=== PATIENT | male | born 1955 | race Caucasian/White ===

== ENCOUNTER 2018-05-01 16:19 | Outpatient (REF) | payer MEDICAID, SELFPAY ==
[2018-05-01 22:15] LABS: Abs Immature Grans 0.03 k/cumm (0.0-0.09); Absolute Basophil Count 0.03 k/cumm (0.0-0.2); Absolute Eosinophil Count 0.16 k/cumm (0.0-0.7); Absolute Lymphocyte Count 1.68 k/cumm (1.2-3.4); Absolute Monocyte Count 0.82 k/cumm (0.11-0.7); Absolute Neutrophil Count 5.08 k/cumm (1.2-6.7); Basophils % 0.4; Eosinophils % 2.1; HCT 43.9 % (40.0-50.0); Immature Grans % 0.4; Lymphocytes % 21.5; Mean Corp. HGB Concentration 34.2 g/dL (32.0-36.0); Mean Corpuscular Hemoglobin 31.9 pg (27.0-33.0); Mean Corpuscular Volume 93.4 fL (80-95); Mean Platelet Volume 10.3 fL (8.0-11.0); Monocytes % 10.5; Neutrophils % 65.1; Platelet Count 279 x1000/uL (130-400); RBC Distribution Width 12.8 % (11.8-14.1)
[2018-05-01 22:57] LABS: ALT 18 U/L (12-78); AST 10 U/L (15-37); Alkaline Phosphatase 69 U/L (46-116); Anion Gap 8.8 mmol/L (3-11); BUN 19 mg/dL (7-18); Bilirubin, Total 0.3 mg/dL (0.2-1.0); C-Reactive Protein 0.22 mg/dL (0.0-0.3); CO2 28.2 mmol/L (21.0-32.0); CREATININE 1.43 mg/dL (0.70-1.30); Calcium 9.2 mg/dL (8.5-10.1); Chloride 102 mmol/L (98-107); Estimated GFR 50.11 (mL/min/1.73m2); Glucose 91 mg/dL (70-100); Hemoglobin A1C 5.8 % (4.5-6.2); Potassium 3.8 mmol/L (3.5-5.1); Sodium 139 mmol/L (136-145); Total Protein 7.5 g/dL (6.4-8.2)
[2018-05-02 00:14] LABS: ESR 10 MM/HR (1-20)
[2018-05-03 11:30] LABS: Hepatitis C Ab w Rflx HCV PCR Negative (NEGAT)
[2018-05-03 11:31] LABS: HIV-1/2 Ag & Ab Screen Negative (NEGAT)
== END 2018-05-01 16:39 ==
LOC: NCHCN 16:19
PROVIDERS: PCP Nurse Practitioner; Visit Provider Nurse Practitioner
DX: R63.4 Abnormal weight loss (principal); Z11.59 Encounter for screening for other viral diseases; Z11.4 Encounter for screening for human immunodeficiency virus [HIV]
CPT/HCPCS: 80053; 85652; 86803; 87389; 83036; 84443; 85025; 86140

== ENCOUNTER 2018-06-30 10:37 | Outpatient (REF) | payer MEDICAID, SELFPAY ==
[2018-06-30 20:42] LABS: Bilirubin Negative (Negative); Blood Negative (Negative); Clarity Clear; Glucose Negative (Negative); Ketones Trace mg/dL (Negative); Leukocyte Esterase Negative (Negative); Nitrite Negative (Negative); Specific Gravity 1.025 (1.005-1.025); Urobilinogen 0.2 EU/dL (Up TO 0.2); pH 5.5 (5-8)
[2018-06-30 21:16] LABS: COMMENT (LAB VIEW ONLY) 120.63 mg/dL; Microalb ug/mg Crea 4.6 ug/mg Cr
[2018-06-30 21:20] LABS: Albumin 3.9 g/dL (3.4-5.0); Anion Gap 10.5 mmol/L (3-11); BUN 23 mg/dL (7-18); CO2 25.5 mmol/L (21.0-32.0); CREATININE 1.27 mg/dL (0.70-1.30); Calcium 9.3 mg/dL (8.5-10.1); Chloride 103 mmol/L (98-107); Estimated GFR 57.46 (mL/min/1.73m2); Glucose 133 mg/dL (70-100); NT-proBNP 71 pg/mL; PHOSPHORUS 3.5 mg/dL (2.6-4.7); Potassium 4.7 mmol/L (3.5-5.1); Sodium 139 mmol/L (136-145)
[2018-06-30 22:59] LABS: Epithelial Cells Rare HPF (Negative); Other Cells Negative (Negative); RBC Negative (0-2); WBC Negative HPF (0-5)
[2018-06-30 23:00] LABS: Bacteria Negative HPF (Negative); C & S Indicated? No; Casts Negative LPF (Negative); Crystals Negative HPF (Negative); Mucus Negative (Negative)
== END 2018-06-30 10:57 ==
LOC: NCHCN 10:37
PROVIDERS: PCP Nurse Practitioner; Visit Provider Nurse Practitioner
DX: R94.4 Abnormal results of kidney function studies (principal); R06.09 Other forms of dyspnea
CPT/HCPCS: 80069; 81003; 81015; 82043; 82570; 83880

== ENCOUNTER 2020-03-09 12:22 | Emergency (ER) | payer MEDICAID, SELFPAY ==
[2020-03-09] VITALS (21 sets, daily range): BP systolic 135–168; BP diastolic 75–93; PULSE 63–98; RESP 13–27; TEMP 37.2; O2SAT 97–100
--- NOTE | 2020-03-09 12:27 | ED.GENADUL_ITS ---
Discharge Plan Disposition Patient Disposition: HOME Condition: Stable Discharge Details Clinical Impression: Anxiety, Shortness of breath Primary Care Provider: Kelin Pan ED Provider: Chance Avalos Home Meds and New Rx's Prescriptions: Continued aspirin [Children's Aspirin] 81 MG tablet,chewable 81 mg PO DAILY RF: 0 omeprazole 20 MG tablet,delayed release (DR/EC) 1 tab PO DAILY RF: 0 Men's 50 Plus Multivitamin 400-20-370 mcg Tablet 1 tab PO DAILY RF: 0 Discontinued clonazepam 0.5 MG tablet 0.5 mg PO DAILY RF: 0 simvastatin 40 MG tablet 40 mg PO DAILY RF: 0 citalopram 20 MG tablet 20 mg PO DAILY RF: 0 Discharge Instructions Instructions: Chest Pain (ED), Anxiety (ED) Additional Instructions: Please contact your primary care physician to arrange follow-up. Call on Tuesday. Patient to discuss restarting your prescribed medications. You have a stress test performed as soon as possible. Return to the ER for any worsening or new concerning symptoms. Discharge Data Discharge Date/Time-TO BE ENTERED AT DEPARTURE: 03/09/20 17:35 Medical Decision Making <WILFRID Alvarado - Last Filed: 03/10/20 08:04> 65-year-old gentleman, current smoker, past medical history of anxiety, depression, GERD, hypercholesteremia, presents to the ER today for multiple complaints. First he complains of ongoing anxiety, depression, panic attacks. Denies any suicidal or homicidal ideations. He has not been seen by his primary care provider in over 2 years and has not had a prescription for citalopram or clonazepam, would like a refill of these. He then reports multiple symptoms that include shortness of breath, cough, palpitations, dizziness, chest pressure when coughing but denies any chest pain. He states that the symptoms are chronic in nature but then later tells me maybe they are worse over the past week or so. Clinically patient appears well, nontoxic. She does appear slightly anxious. Initial blood pressure 168/93, pulse 85. We had a very candid conversation regarding his presentation. Given he has not had his medications for 2 years, I would not be initiating these medications today. I would be happy to place him on the care management list who can help him establish primary care follow-up, counseling, and help expedite his outpatient care and refills of his medications. It does not appear as though he has any true acute medical complaints such as active chest pain but given his multiple vague complaints I do believe initiating a cardiac work-up is perfectly reasonable. I explained to him that we would need a minimum like to obtain a repeat troponin in 3 hours which means his ER visit will likely be a minimum of 3-4 hours. We also discussed the potential for observation admission but patient declines this, he would prefer to go home if at all possible. He does understand that he may need further work-up as an outpatient through a primary care provider which include stress test, echocardiogram, etc. Initial laboratory values in the ER are unremarkable for obvious emergent process. White blood cell count 8.51 hemoglobin 15.2 hematocrit 43.9 platelet count 261. INR 1.1 electrolytes unremarkable. Creatinine 1.39 with a GFR 51.45 with this appears to be near baseline. Troponin is less than 0.05, BNP 58, TSH 2.07. Covid pending. CTA has been completed but apparently there was an issue with transmitting the images and the official read has been delayed. I did personally speak with radiology who is aware of the problem and will retransmit the images. I reevaluated the patient at 1520, he is resting comfortably, reports that he is no longer anxious, and is currently asymptomatic. He understands that his initial work-up was unremarkable for any obvious emergent process. He understands that we are waiting for his repeat troponin to be drawn at approximately 1610. He also understands that we are awaiting the official read for his chest imaging. Patient does request that he be discharged sooner than later because he would like to go outside and smoke a cigarette. CTA read negative by virtual radiology At time of signout to Dr. Avalos, patient is asymptomatic. Awaiting the repeat troponin. If negative, patient would like to be discharged. He does not want to be admitted for observation. She has been placed on the care management list to help expedite outpatient care. He was encouraged to return to the ER for new or worsening symptoms. Medical Records Medical records reviewed: Yes I reviewed the patient's medical records. Lab Data Lab results reviewed: Yes I reviewed the patient's lab results. Lab results narrative: Laboratory Tests Range/Units 03/09/20 03/09/20 03/09/20 13:10 13:10 13:10 WBC (4.4-10.8) 10^3/uL RBC (4.36-5.78) 10^6/uL Hgb (13.5-17.5) g/dL Hct (40.0-50.0) % MCV (80-95) fL MCH (27.0-33.0) pg MCHC (32.0-36.0) % RDW (11.8-14.1) % Plt Count (130-400) 10^3/uL MPV (8.0-11.0) fL Immature Gran % Neutrophils % Lymphocytes % Monocytes % Eosinophils % Basophils % Nucleated RBC % % Absolute Neutrophils (1.2-6.7) 10^3/uL Absolute Lymphocytes (1.2-3.4) 10^3/uL Absolute Monocytes (0.1-0.8) 10^3/uL Absolute Eosinophils (0.0-0.7) 10^3/uL Absolute Basophils (0.0-0.2) 10^3/uL PT (9.3-11.0) sec 10.7 INR (0.9-1.1) 1.1 APTT (21.0-27.5) sec 30.2 H Sodium (136-145) mmol/L 138 Potassium (3.5-5.1) mmol/L 4.2 Chloride (98-107) mmol/L 104 Carbon Dioxide (21.0-32.0) mmol/L 26.7 Anion Gap (3-11) mmol/L 7.3 BUN (7-18) mg/dL 14 Creatinine (0.70-1.30) mg/dL 1.39 H Estimated GFR/1.73 m2 (mL/min/1.73m2) 51.45 Glucose (74-106) mg/dL 132 H Calcium (8.5-10.1) mg/dL 8.7 Magnesium (1.8-2.4) mg/dL 1.8 Total Bilirubin (0.2-1.0) mg/dL 0.5 AST (15-37) U/L 14 L ALT (16-63) U/L 18 Alkaline Phosphatase (46-116) U/L 62 Troponin I (<0.06) ng/mL < 0.05 NT-Pro-B Natriuret Pep (<300) pg/mL 58 Total Protein (6.4-8.2) g/dL 7.3 Albumin (3.4-5.0) g/dL 4.0 TSH (0.36-3.74) uIU/mL 2.07 Range/Units 03/09/20 13:10 WBC (4.4-10.8) 10^3/uL 8.51 RBC (4.36-5.78) 10^6/uL 4.84 Hgb (13.5-17.5) g/dL 15.2 Hct (40.0-50.0) % 43.9 MCV (80-95) fL 90.7 MCH (27.0-33.0) pg 31.4 MCHC (32.0-36.0) % 34.6 RDW (11.8-14.1) % 12.5 Plt Count (130-400) 10^3/uL 261 MPV (8.0-11.0) fL 9.8 Immature Gran % 0.8 Neutrophils % 66.7 Lymphocytes % 20.6 Monocytes % 9.0 Eosinophils % 2.4 Basophils % 0.5 Nucleated RBC % % 0 Absolute Neutrophils (1.2-6.7) 10^3/uL 5.68 Absolute Lymphocytes (1.2-3.4) 10^3/uL 1.75 Absolute Monocytes (0.1-0.8) 10^3/uL 0.77 Absolute Eosinophils (0.0-0.7) 10^3/uL 0.20 Absolute Basophils (0.0-0.2) 10^3/uL 0.04 PT (9.3-11.0) sec INR (0.9-1.1) APTT (21.0-27.5) sec Sodium (136-145) mmol/L Potassium (3.5-5.1) mmol/L Chloride (98-107) mmol/L Carbon Dioxide (21.0-32.0) mmol/L Anion Gap (3-11) mmol/L BUN (7-18) mg/dL Creatinine (0.70-1.30) mg/dL Estimated GFR/1.73 m2 (mL/min/1.73m2) Glucose (74-106) mg/dL Calcium (8.5-10.1) mg/dL Magnesium (1.8-2.4) mg/dL Total Bilirubin (0.2-1.0) mg/dL AST (15-37) U/L ALT (16-63) U/L Alkaline Phosphatase (46-116) U/L Troponin I (<0.06) ng/mL NT-Pro-B Natriuret Pep (<300) pg/mL Total Protein (6.4-8.2) g/dL Albumin (3.4-5.0) g/dL TSH (0.36-3.74) uIU/mL ECG Data Attestation: I personally reviewed and interpreted this ECG (s) as follows: Interpretation: Please see official report by Dr. Benitez. Sinus rhythm, ventricular rate of 90. Incomplete left bundle branch block. No STEMI <Chance Avalos MD - Last Filed: 03/30/20 08:44> Delta trop neg. Medical screening exam performed. Patient stable for discharge with outpatient followup. Discharge plan reviewed with patient and he understands the importance of timely followup and need to return to the ED immediately for any worsening or new concerning symptoms. HPI <WILFRID Alvarado - Last Filed: 03/10/20 08:04> General Mode of arrival: ambulatory . Date/Time Provider Initiated Documentation: 03/09/20 12:23 . Limitations to Documentation: no limitations . Information obtained by: patient . HPI Narrative: This is a 65-year-old gentleman who reports a past medical history of anxiety, depression, GERD, hypercholesteremia, current smoker approximately 1-1/2 packs of cigarettes daily. He states that he has not seen his primary care provider in [place] in over 2 years because of transportation issues. He recently got a car in the last couple of months but is not established primary care follow-up. He presents to the ER today with multiple vague complaints, and unfortunately he is a rather vague and poor historian. He states that he feels his anxiety is getting worse although cannot tell me of any specific trigger or stressor. He believes he has had a couple of panic attacks recently. He is requesting a refill of his citalopram and clonazepam however he has not been on this medication in over 2 years. He denies any suicidal or homicidal ideations and reports that he does feel safe. Patient then starts to discuss other symptoms. He reports for quite some time, at least 1 week, has had occasional palpitations, chronic shortness of breath secondary to his smoking that may be slightly worse than his baseline, he does have mild chest pressure after having coughing episodes. He reports that he has a chronic cough from his heavy smoking, this appears to be at baseline, denies any sputum. He denies recent illness, travel, trauma. He reports occasional mild global headache, denies fever, neck pain, chest pain, abdominal pain or vomiting. He does report occasional nausea. Denies any back pain, skin rash, change in bowel or bladder function, pain or swelling in his legs, numbness, tingling, weakness. Related Data Home Medications Medication Instructions Recorded Confirmed aspirin [Children's Aspirin] 81 mg PO DAILY 02/04/17 03/09/20 omeprazole 1 tab PO DAILY 02/04/17 03/09/20 Men's 50 Plus Multivitamin 1 tab PO DAILY 03/09/20 03/09/20 Allergies Allergy/AdvReac Type Severity Reaction Status Date / Time Sulfa (Sulfonamide Allergy Intermediate Nausea Verified 03/09/20 12:45 Antibiotics) Review of Systems <WILFRID Alvarado - Last Filed: 03/10/20 08:04> Constitutional Constitutional: Denies fatigue, Denies fever(s), Reports headache(s) and Denies weakness Eyes Eyes: Denies change in vision ENT Ears, Nose, Mouth, and Throat: Reports headache(s) and Denies neck pain Cardiovascular Cardiovascular: Denies chest pain and Reports dyspnea Respiratory Respiratory: Reports cough and Reports dyspnea Gastrointestinal Gastrointestinal: Denies abdominal pain, Denies constipation, Denies diarrhea, Reports nausea and Denies vomiting Genitourinary Genitourinary: Denies dysuria Musculoskeletal Musculoskeletal: Denies back pain, Denies neck pain, Denies numbness and Denies tingling Integumentary/Breasts Skin/Breast: Denies rash Neurologic Neurologic: Reports dizziness (Associated with excessive coughing and palpitations), Reports headache(s), Denies numbness, Denies tingling and Denies weakness Psychiatric Psychiatric: Reports anxiety, Reports depression, Reports panic attacks, Denies homicidal ideation and Denies suicidal ideation Endocrine Endocrine: Denies fatigue PFSH <WILFRID Alvarado - Last Filed: 03/10/20 08:04> Social History Smoking/Tobacco Use Status: Current every day Tobacco Type: cigarettes Tobacco: How many years used: 15 Smoking risk assessment performed?: Yes Alcohol Intake: current Alcohol Intake frequency: holidays/special occasions only Drug use: Never Substance use type: does not use Do you feel safe at home: Yes Do you feel safe in your relationship?: Yes Exam <WILFRID Alvarado - Last Filed: 03/10/20 08:04> Const General: cooperative, healthy appearing, comfortable and no acute distress Orientation: alert and awake [facility] Head: normal to inspection, normocephalic and atraumatic Face and sinus: normal facial exam Mouth: moist mucous membranes Throat: posterior oropharynx normal Eyes General: appearance normal, both eyes and all related structures Alignment and Position: alignment normal Periorbital: periorbital findings normal Eyelids: eyelids normal Conjunctivae: conjunctivae normal Sclera: sclerae normal Cornea: corneas normal Pupils: PERRL EOM: EOM intact bilaterally Direct ophthalmoscopy: normal light reflex Neck Neck: normal visual inspection, full ROM, trachea midline, supple and nontender Resp Effort & Inspection: normal respiratory effort and able to speak in complete sentences Auscultation: clear to auscultation bilaterally Cardio Rate: regular rate Rhythm: regular rhythm GI Palpation: soft, not firm, no guarding, no pulsatile masses and nontender Auscultation: normal bowel sounds Back/Spine/Pelvis Back: No back tenderness Skin General skin exam: no rashes or lesions noted Neuro General: patient alert, patient awake, moves all extremities and no focal motor deficits Cranial Nerves: CN's II-XI intact bilaterally Cognition: normal cognition Speech: speech normal Gait: normal gait Motor: muscle tone normal throughout and strength 5/5 throughout Sensory Exam: no sensory deficits noted Extrem General: normal to inspection, full ROM, capillary refill normal, no pedal edema and no calf tenderness Psych Appearance: grossly normal Mental Status: mental status grossly normal Speech and Movement: speech and movement normal Mood: anxious mood Affect: normal affect Attitude: cooperative Thought Process: normal Thought Content: normal Insight: insight good Judgment: judgment good Sign Out <WILFRID Alvarado - Last Filed: 03/10/20 08:04> Sign Out Data: Sign Out Comment: Negative work-up thus far, patient is currently asymptomatic. Awaiting his repeat troponin which is to be drawn at 1610. We discussed a observation admission, patient declined. He was placed on the care management list to help expedite outpatient primary care follow-up, counseling, and refills of his medications that he has not been on in over 2 years Last updated by Sae Jj PA at 03/09/20 15:50
--- NOTE | 2020-03-09 12:30 | RT.EKG_ITS ---
APPROVED REPORT Exam: Resting ECG Patient Location: E HR:90 bpm ECG Measurements Heart Rate 90 AXIS CA 135 P 64 QRSd 111 QRS -36 QT 365 T 105 QTc 447 Conclusion Sinus rhythm Incomplete left bundle branch block
--- NOTE | 2020-03-09 13:03 | DI.CT_ITS ---
EXAM: CT CHEST PE CTA CLINICAL HISTORY: Shortness of breath, palpitations. TECHNIQUE: Imaging Protocol: Axial CT angiography was performed with multi-slice acquisition and mu lti-planar and/or 3D reconstructions. CONTRAST MATERIAL: Intravenous: Omnipaque 350 Contrast volume:82 ml COMPARISON: CR CHEST 2 VIEWS PA,LAT from 12/30/2009 FINDINGS: Pulmonary Arteries: No evidence of filling defect to suggest pulmonary emboli. Tracheobronchial tree: Patent where visualized. Mediastinum and Rebeca: No dominant adenopathy or fluid collection. Pulmonary parenchyma: No consolidation or dominant measurable mass. No architectural distortion. Ex piratory changes Pleura: No effusion or pneumothorax. Heart: The heart is not dilated. Minimal coronary artery calcifications are seen. Aorta: Ascending aorta mildly dilated at 4.1 cm.. [id number] calcification. No dissection. Upper abdomen: Unremarkable. Bones: Mild degenerative changes. IMPRESSION: No evidence of pulmonary embolism. No acute abnormality. RADIATION DOSE DELIVERED: 470.79mGy.cm Total DLP DATA REPOSITORY: All CT scans at this facility are submitted to the National Radiology Data Registry (NRDR) Dose Index Registry (DIR) with the [employer] (A[employer]). RADIATION OPTIMIZATION: All CT scans at this facility use at least one of these dose optimization te chniques: automated exposure control; mA and/or kV adjustment per patient size (includes targeted exa ms where dose is matched to clinical indication); or iterative reconstruction.
--- NOTE | 2020-03-09 13:18 | NUR.NOTE ---
Referral to Care Management to Establish PCP, this should be sooner rather than later.Nursing Note:
[2020-03-09 13:24] LABS: Abs Immature Grans 0.07 10^3/uL (0.0-0.06); Absolute Basophil Count 0.04 10^3/uL (0.0-0.2); Absolute Lymphocyte Count 1.75 10^3/uL (1.2-3.4); Absolute Monocyte Count 0.77 10^3/uL (0.1-0.8); Absolute Neutrophil Count 5.68 10^3/uL (1.2-6.7); Basophils % 0.5; Eosinophils % 2.4; HCT 43.9 % (40.0-50.0); HGB 15.2 g/dL (13.5-17.5); Immature Grans % 0.8; Lymphocytes % 20.6; MCH 31.4 pg (27.0-33.0); MCHC 34.6 % (32.0-36.0); MCV 90.7 fL (80-95); MPV 9.8 fL (8.0-11.0); Neutrophils % 66.7; Nucleated RBC 0 %; Platelet Count 261 10^3/uL (130-400); RBC 4.84 10^6/uL (4.36-5.78); RDW 12.5 % (11.8-14.1); WBC 8.51 10^3/uL (4.4-10.8)
[2020-03-09 13:29] LABS: INR 1.1 (0.9-1.1); PTT Activated 30.2 sec (21.0-27.5); Prothrombin Time 10.7 sec (9.3-11.0)
[2020-03-09 13:32] LABS: ALT 18 U/L (16-63); AST 14 U/L (15-37); Alkaline Phosphatase 62 U/L (46-116); Anion Gap 7.3 mmol/L (3-11); BUN 14 mg/dL (7-18); Bilirubin, Total 0.5 mg/dL (0.2-1.0); CO2 26.7 mmol/L (21.0-32.0); CREATININE 1.39 mg/dL (0.70-1.30); Calcium 8.7 mg/dL (8.5-10.1); Chloride 104 mmol/L (98-107); Estimated GFR 51.45 (mL/min/1.73m2); Glucose 132 mg/dL (74-106); Magnesium 1.8 mg/dL (1.8-2.4); Potassium 4.2 mmol/L (3.5-5.1); Sodium 138 mmol/L (136-145); Total Protein 7.3 g/dL (6.4-8.2)
[2020-03-09 13:33] LABS: Troponin I < 0.05 ng/mL (<0.06)
[2020-03-09 13:40] LABS: NT-proBNP 58 pg/mL (<300); TSH (W/Ref FT4) 2.07 uIU/mL (0.36-3.74)
[2020-03-09] MEDS: Normal Saline 1,000 ML 1000 ML IV (14:06)
[2020-03-09] MEDS: Omnipaque 350 MG/ML 100 ML BTL IV (14:30)
--- NOTE | 2020-03-09 15:45 | RT.EKG_ITS ---
APPROVED REPORT Exam: Resting ECG Patient Location: E HR:67 bpm ECG Measurements Heart Rate 67 AXIS AZ 149 P 61 QRSd 112 QRS -38 QT 420 T 101 QTc 426 Conclusion Sinus rhythm...normal P axis, V-rate 60- 99 Atrial premature complexes...SV complexes w/ short R-R intvls Incomplete left bundle branch block...QRSd>110mS, terminal axis(-90,-1) Low voltage, precordial leads...precordial leads <1.0mV
--- NOTE | 2020-03-09 15:46 | NUR.NOTE ---
waiting for repeat trop, voided in bedside commode. resting quietly, no distress
--- NOTE | 2020-03-09 15:47 | DI.VRAD_ITS ---
PROCEDURE INFORMATION: Exam: CT Angiography Chest With Contrast Exam date and time: 03/09/2020 2:31 PM Age: 65 years old Clinical indication: Other: SOB, palpitations TECHNIQUE: Imaging protocol: Computed tomographic angiography of the chest with intravenous contrast. 3D rendering (Not supervised by radiologist): MIP and/or 3D reconstructed images were created by the technologist. Radiation optimization: All CT scans at this facility use at least one of these dose optimization techniques: automated exposure control; mA and/or kV adjustment per patient size (includes targeted exams where dose is matched to clinical indication); or iterative reconstruction. Contrast material: OMNIPAQUE 350; Contrast volume: 82 ml; Contrast route: INTRAVENOUS (IV); COMPARISON: No relevant prior studies available. FINDINGS: Pulmonary arteries: Normal. No pulmonary emboli. Aorta: Mild atherosclerotic change present in the vasculature. Lungs: Unremarkable. No consolidation. No masses. Pleural space: Unremarkable. No pneumothorax. No pleural effusion. Heart: Unremarkable. No cardiomegaly. No pericardial effusion. Lymph nodes: Unremarkable. No enlarged lymph nodes. Bones/joints: Unremarkable. No acute fracture. Soft tissues: Unremarkable. IMPRESSION: No evidence for pulmonary embolus. Dictated and Authenticated by: Karen Richmond MD. Ordering:KYLER Quevedo MD
[2020-03-09 16:38] LABS: Troponin I < 0.05 ng/mL (<0.06)
--- NOTE | 2020-03-11 12:43 | CMPROGNOTE_ITS ---
- If Service Date Differs Date of service: 03/11/20 Time of Service: 12:43 Care Management Progress Note CM is asked to assist Angel in establishing care with a primary care doctor. Angel was formerly seen at the [facility], so CM telephones their office and learns that he is still an active patient. Angel was seen for a telehealth visit yesterday, Tuesday, March 10, 2020. has contacted [facility] to request that Kelin Pan MD, be added as Angel's PCP in his medical chart.
[2020-03-11 20:29] LABS: Patient Race White; SARS-CoV-2 RNA Undetected (Undetected); SARS-CoV-2 Specimen Source Nasal
== END 2020-03-09 17:35 | disposition home or self-care (01) ==
PROVIDERS: Physician Assistant; Emergency Provider Student in an Organized Health Care Education/Training Program; PCP Family Medicine
DX: F41.8 Other specified anxiety disorders (principal); R06.02 Shortness of breath; F17.210 Nicotine dependence, cigarettes, uncomplicated; J41.0 Simple chronic bronchitis; Z11.59 Encounter for screening for other viral diseases
CPT/HCPCS: 36415; 71275; 80053; 93005; 96360; 99285; U0003; 83735; 83880; 84443; 84484; 85025; 85610; 85730; 93010; 99284; J3490

== ENCOUNTER 2020-04-28 14:45 | Outpatient (REF) | payer MEDICAID, SELFPAY ==
[2020-04-28 13:34] LABS: HCT 45.8 % (40.0-50.0); HGB 15.5 g/dL (13.5-17.5); MCH 31.6 pg (27.0-33.0); MCHC 33.8 % (32.0-36.0); MCV 93.3 fL (80-95); MPV 9.8 fL (8.0-11.0); Platelet Count 272 10^3/uL (130-400); RBC 4.91 10^6/uL (4.36-5.78); RDW 13.2 % (11.8-14.1); RDW-SD 44.9 fL; WBC 9.31 10^3/uL (4.4-10.8)
[2020-04-28 13:57] LABS: Hemoglobin A1C 5.9 % (<5.7)
[2020-04-28 14:03] LABS: Calculated LDL 157 mg/dL (<100); Cholesterol 218 mg/dL (<200); HDL Cholesterol 30 mg/dL (40-60); Triglyceride 156 mg/dL (<150)
[2020-04-28 21:47] LABS: PSA, Screening 1.8 ng/mL (0.0-4.5)
== END 2020-04-28 15:05 ==
LOC: NCHCN 14:45
PROVIDERS: PCP Family Medicine; Visit Provider Family Medicine
DX: R73.03 Prediabetes (principal); I10 Essential (primary) hypertension; E78.5 Hyperlipidemia, unspecified; Z12.5 Encounter for screening for malignant neoplasm of prostate; Z13.21 Encounter for screening for nutritional disorder
CPT/HCPCS: 80061; 82306; 84153; 85027; 83036

== ENCOUNTER 2020-08-22 16:05 | Emergency (ER) | payer MEDICAID, SELFPAY ==
[2020-08-22] VITALS (29 sets, daily range): BP systolic 110–143; BP diastolic 67–79; PULSE 71–110; RESP 13–24; TEMP 35.9; O2SAT 95–100
--- NOTE | 2020-08-22 16:15 | RT.EKG_ITS ---
APPROVED REPORT Exam: Resting ECG Reason for Exam: cramping Patient Location: E HR:99 bpm ECG Measurements Heart Rate 99 AXIS CA 131 P 63 QRSd 114 QRS -41 QT 368 T 100 QTc 474 Conclusion Sinus rhythm...normal P axis, V-rate 60- 99 Atrial premature complex...SV complex w/ short R-R interval Incomplete left bundle branch block...QRSd>110mS, terminal axis(-90,-1) Low voltage, precordial leads...precordial leads <1.0mV Probable anterolateral infarct, old...Q>35mS, abnrm ST-T, V2-V6,I,aVL
--- NOTE | 2020-08-22 16:40 | W.ED.GENAD ---
Discharge Plan Disposition Patient Disposition: HOME Condition: Improving Discharge Details Clinical Impression: Dehydration, Muscle cramp, Leukocytosis, Renal insufficiency Primary Care Provider: Kelin Pan ED Provider: Sae Jj Home Meds and New Rx's Prescriptions: Continued aspirin [Children's Aspirin] 81 MG tablet,chewable 81 mg PO DAILY RF: 0 omeprazole 20 MG tablet,delayed release (DR/EC) 1 tab PO DAILY RF: 0 Men's 50 Plus Multivitamin 400-20-370 mcg Tablet 1 tab PO DAILY RF: 0 simvastatin 40 mg tablet 40 mg DAILY RF: 0 citalopram 20 mg tablet 20 mg DAILY RF: 0 lisinopril 10 mg tablet 10 mg DAILY RF: 0 Discharge Instructions Instructions: Dehydration (ED), Acute Kidney Injury (DC), Leukocytosis (ED) Additional Instructions: Laboratory values reveal that you are dehydrated, after receiving 2 L of IV fluid laboratory values are improving. You are no longer having any cramps or spasms. I would decrease her overall intake of coffee and soda and increase your water and electrolyte fluids such as Gatorade or Powerade. Be sure to take if this weekend, do not overexert yourself. Please watch for new or worsening symptoms and return to the ER for any concerns. Please contact your primary care provider on Tuesday to discuss your ER visit and need for outpatient reevaluation. Likely laboratory values ED. Check to be sure that your hydration status is improving as well as following your PSA given your enlarged prostate on CT Medical Decision Making <WILFRID Alvarado - Last Filed: 08/22/20 19:46> 65-year-old gentleman, current smoker, past medical history of anxiety, depression, GERD, hypercholesteremia, presents to the ER today for muscle spasms. He reports the pain is worse with movement. Began earlier today when outside exerting himself mowing lawns. Openly admits that he is potentially dehydrated, does not drink very much water. Patient is highly anxious, during my HPI and examination he reports a charley horse to his left leg and cramping across the front of his abdomen that came and went before I was able to palpate. Certainly could be dehydration, cramping, electrolyte abnormality but given the location of his abdomen, flank, cannot rule out bowel obstruction ileus, etc. Will obtain IV access, give IV fluid, Valium, obtain routine laboratory values including a lactate and CPK. Case discussed with Dr. Avalos who personally evaluated the patient, please see his note. Initial laboratory values reveals a white blood cell count of 16.13, lactate of 2.1, creatinine of 2.4. CPK minimally elevated at [address] imaging of abdomen and pelvis without contrast given his GFR. CT read by radiology as no acute intra-abdominal or pelvic process. Scattered colon diverticuli without evidence of diverticulitis. Enlarged prostate gland measuring 5.3 cm Chest x-ray negative per radiology. Patient reports dramatic improvement of his symptoms after IV fluid and Valium. We discussed his laboratory values and CT findings. Discussed importance of outpatient follow-up with his primary care provider and to follow his PSA for his enlarged prostate. We also discussed the importance of decreasing his overall coffee and soda intake and increasing with water and electrolyte fluids such as Gatorade and/or Powerade. Patient will be given a second liter of lactated Ringer's and will obtain repeat CBC, CMP and lactate. Patient is comfortable with this plan. Repeat laboratory values reveal his white blood cell count trending downward at 14.58, lactate now normal at 1.3, creatinine decreasing to 2.1 with a GFR increasing to 31.96. Upon reevaluation patient reports his symptoms have essentially resolved, he feels well, using his cell phone without difficulty. We discussed his improving laboratory values although they are still not within normal limits. Discussed the importance of adequate hydration and the importance of outpatient reassessment and likely redraw of his laboratory values to assess his overall leukocytosis, renal function, etc. Patient does not require emergent admission at this time. Patient is comfortable with this plan and has no additional questions or concerns Medical Records Medical records reviewed: Yes I reviewed the patient's medical records. Lab Data Lab results reviewed: Yes I reviewed the patient's lab results. Labs: 08/22/20 17:32 Urine - Reflex from Ua Urine Culture - Pending Laboratory Tests Range/Units 08/22/20 08/22/20 08/22/20 16:40 16:40 16:40 WBC (4.4-10.8) 10^3/uL 16.13 H RBC (4.36-5.78) 10^6/uL 4.90 Hgb (13.5-17.5) g/dL 15.7 Hct (40.0-50.0) % 46.0 MCV (80-95) fL 93.9 MCH (27.0-33.0) pg 32.0 MCHC (32.0-36.0) % 34.1 RDW (11.8-14.1) % 12.6 Plt Count (130-400) 10^3/uL 285 MPV (8.0-11.0) fL 9.7 Immature Gran % 1.2 Neutrophils % 80.6 Lymphocytes % 9.8 Monocytes % 7.6 Eosinophils % 0.4 Basophils % 0.4 Nucleated RBC % % 0 Absolute Neutrophils (1.2-6.7) 10^3/uL 13.00 H Absolute Lymphocytes (1.2-3.4) 10^3/uL 1.58 Absolute Monocytes (0.1-0.8) 10^3/uL 1.23 H Absolute Eosinophils (0.0-0.7) 10^3/uL 0.06 Absolute Basophils (0.0-0.2) 10^3/uL 0.06 VBG Lactate (0.6-1.4) mmol/L 2.1 H Sodium (136-145) mmol/L 140 Potassium (3.5-5.1) mmol/L 4.8 Chloride (98-107) mmol/L 103 Carbon Dioxide (21.0-32.0) mmol/L 27.7 Anion Gap (3-11) mmol/L 9.3 BUN (7-18) mg/dL 20 H Creatinine (0.70-1.30) mg/dL 2.4 H Estimated GFR/1.73 m2 (mL/min/1.73m2) 27.39 Glucose (74-106) mg/dL 128 H Calcium (8.5-10.1) mg/dL 10.0 Magnesium (1.8-2.4) mg/dL Total Bilirubin (0.2-1.0) mg/dL 0.6 AST (15-37) U/L 16 ALT (16-63) U/L 29 Alkaline Phosphatase (46-116) U/L 72 Creatine Kinase (39-308) U/L Troponin I (<0.06) ng/mL Total Protein (6.4-8.2) g/dL 8.7 H Albumin (3.4-5.0) g/dL 4.9 Lipase (73-393) U/L 111 Urine Color (Yellow) Urine Clarity (Clear) Urine pH (5-8) Ur Specific [place] (1.005-1.025) Urine Protein (Negative) mg/dL Urine Ketones (Negative) mg/dL Urine Blood (Negative) Urine Nitrite (Negative) Urine Bilirubin (Negative) Urine Urobilinogen (Up TO 0.2) EU/dL Ur Leukocyte Esterase (Negative) Urine RBC (0-2) HPF Urine WBC (0-5) HPF Ur Epithelial Cells (Negative) HPF Urine Crystals (Negative) HPF Urine Bacteria (Negative) HPF Urine Casts (Negative) LPF Urine Mucus (Negative) Urine Other (Negative) Ur Culture Indicated? Urine Glucose (Negative) mg/dL Range/Units 08/22/20 08/22/20 08/22/20 16:40 16:40 17:32 WBC (4.4-10.8) 10^3/uL RBC (4.36-5.78) 10^6/uL Hgb (13.5-17.5) g/dL Hct (40.0-50.0) % MCV (80-95) fL MCH (27.0-33.0) pg MCHC (32.0-36.0) % RDW (11.8-14.1) % Plt Count (130-400) 10^3/uL MPV (8.0-11.0) fL Immature Gran % Neutrophils % Lymphocytes % Monocytes % Eosinophils % Basophils % Nucleated RBC % % Absolute Neutrophils (1.2-6.7) 10^3/uL Absolute Lymphocytes (1.2-3.4) 10^3/uL Absolute Monocytes (0.1-0.8) 10^3/uL Absolute Eosinophils (0.0-0.7) 10^3/uL Absolute Basophils (0.0-0.2) 10^3/uL VBG Lactate (0.6-1.4) mmol/L Sodium (136-145) mmol/L Potassium (3.5-5.1) mmol/L Chloride (98-107) mmol/L Carbon Dioxide (21.0-32.0) mmol/L Anion Gap (3-11) mmol/L BUN (7-18) mg/dL Creatinine (0.70-1.30) mg/dL Estimated GFR/1.73 m2 (mL/min/1.73m2) Glucose (74-106) mg/dL Calcium (8.5-10.1) mg/dL Magnesium (1.8-2.4) mg/dL 1.9 Total Bilirubin (0.2-1.0) mg/dL AST (15-37) U/L ALT (16-63) U/L Alkaline Phosphatase (46-116) U/L Creatine Kinase (39-308) U/L 331 H Troponin I (<0.06) ng/mL < 0.05 Total Protein (6.4-8.2) g/dL Albumin (3.4-5.0) g/dL Lipase (73-393) U/L Urine Color (Yellow) Yellow Urine Clarity (Clear) Sl cloudy Urine pH (5-8) 5.0 Ur Specific [place] (1.005-1.025) >= 1.030 H Urine Protein (Negative) mg/dL 100 H Urine Ketones (Negative) mg/dL 15 H Urine Blood (Negative) Negative Urine Nitrite (Negative) Negative Urine Bilirubin (Negative) Moderate H Urine Urobilinogen (Up TO 0.2) EU/dL 1.0 H Ur Leukocyte Esterase (Negative) Negative Urine RBC (0-2) HPF Negative Urine WBC (0-5) HPF >50 H Ur Epithelial Cells (Negative) HPF Few Urine Crystals (Negative) HPF Moderate amorphous Urine Bacteria (Negative) HPF Many Urine Casts (Negative) LPF 10-20 hyaline Urine Mucus (Negative) Heavy Urine Other (Negative) Few transitional Ur Culture Indicated? Yes Urine Glucose (Negative) mg/dL Negative Range/Units 08/22/20 08/22/20 08/22/20 18:45 18:45 18:45 WBC (4.4-10.8) 10^3/uL 14.58 H RBC (4.36-5.78) 10^6/uL 4.40 Hgb (13.5-17.5) g/dL 14.0 Hct (40.0-50.0) % 41.5 MCV (80-95) fL 94.3 MCH (27.0-33.0) pg 31.8 MCHC (32.0-36.0) % 33.7 RDW (11.8-14.1) % 12.5 Plt Count (130-400) 10^3/uL 234 MPV (8.0-11.0) fL 9.7 Immature Gran % 0.8 Neutrophils % 86.3 Lymphocytes % 6.8 Monocytes % 5.6 Eosinophils % 0.1 Basophils % 0.4 Nucleated RBC % % 0 Absolute Neutrophils (1.2-6.7) 10^3/uL 12.58 H Absolute Lymphocytes (1.2-3.4) 10^3/uL 0.99 L Absolute Monocytes (0.1-0.8) 10^3/uL 0.82 H Absolute Eosinophils (0.0-0.7) 10^3/uL 0.01 Absolute Basophils (0.0-0.2) 10^3/uL 0.06 VBG Lactate (0.6-1.4) mmol/L 1.3 Sodium (136-145) mmol/L 141 Potassium (3.5-5.1) mmol/L 4.8 Chloride (98-107) mmol/L 106 Carbon Dioxide (21.0-32.0) mmol/L 28.5 Anion Gap (3-11) mmol/L 6.5 BUN (7-18) mg/dL 19 H Creatinine (0.70-1.30) mg/dL 2.1 H Estimated GFR/1.73 m2 (mL/min/1.73m2) 31.96 Glucose (74-106) mg/dL 108 H Calcium (8.5-10.1) mg/dL 9.1 Magnesium (1.8-2.4) mg/dL Total Bilirubin (0.2-1.0) mg/dL 0.5 AST (15-37) U/L 14 L ALT (16-63) U/L 26 Alkaline Phosphatase (46-116) U/L 59 Creatine Kinase (39-308) U/L Troponin I (<0.06) ng/mL Total Protein (6.4-8.2) g/dL 7.3 Albumin (3.4-5.0) g/dL 3.9 Lipase (73-393) U/L Urine Color (Yellow) Urine Clarity (Clear) Urine pH (5-8) Ur Specific [place] (1.005-1.025) Urine Protein (Negative) mg/dL Urine Ketones (Negative) mg/dL Urine Blood (Negative) Urine Nitrite (Negative) Urine Bilirubin (Negative) Urine Urobilinogen (Up TO 0.2) EU/dL Ur Leukocyte Esterase (Negative) Urine RBC (0-2) HPF Urine WBC (0-5) HPF Ur Epithelial Cells (Negative) HPF Urine Crystals (Negative) HPF Urine Bacteria (Negative) HPF Urine Casts (Negative) LPF Urine Mucus (Negative) Urine Other (Negative) Ur Culture Indicated? Urine Glucose (Negative) mg/dL ECG Data Attestation: I personally reviewed and interpreted this ECG (s) as follows: Interpretation: Please see official report by Dr. Avalos. Sinus rhythm, ventricular rate of 99. Incomplete left bundle branch block. Nonspecific ST-T wave abnormalities. No STEMI. <Chance Avalos MD - Last Filed: 08/22/20 19:48> Patient seen, examined, and discussed with WILFRID Jj. Abdominal exam benign. Patient hemodynamically stable. I agree with treatment plan as discussed/documented. Usual and customary discharge instructions were reviewed with the patient. He was encouraged to follow-up with his primary care regarding COVID-19 vaccination and screening colonoscopy. HPI <WILFRID Alvarado - Last Filed: 08/22/20 19:46> General Mode of arrival: ambulatory. Date/Time Provider Initiated Documentation: 08/22/20 16:06. Limitations to Documentation: no limitations. Information obtained by: patient. HPI Narrative: 65-year-old gentleman, current smoker, past medical history of anxiety, depression, GERD, hypercholesteremia, presents to the ER today reporting that he is experiencing muscle cramps today for the last few hours while outside mowing lawns. He states that he occasionally gets cramps when exerting himself, does not typically drink enough water. States that the cramps today are progressively worse, worse with movement and he is experiencing these cramps across his abdomen, bilateral flanks, back and in his legs. He took [id number] Aleve with little relief of his symptoms. Patient denies any recent illness or trauma. Denies headache, visual change, neck pain, chest pain, shortness of breath, nausea, vomiting, dysuria, hematuria, diarrhea or constipation. Reports having had a normal bowel movement yesterday. Denies numbness, tingling, general or focal weakness. Denies skin rash. Patient reports that he does have umbilical hernia that he is aware of, was told it was not problematic there was no reason to operate. Denies any pain at the umbilical hernia site. Related Data Home Medications Medication Instructions Recorded Confirmed aspirin [Children's Aspirin] 81 mg PO DAILY 02/04/17 08/22/20 omeprazole 1 tab PO DAILY 02/04/17 08/22/20 Men's 50 Plus Multivitamin 1 tab PO DAILY 03/09/20 08/22/20 citalopram 20 mg DAILY 08/22/20 08/22/20 lisinopril 10 mg DAILY 08/22/20 08/22/20 simvastatin 40 mg DAILY 08/22/20 08/22/20 Allergies Allergy/AdvReac Type Severity Reaction Status Date / Time Sulfa (Sulfonamide AdvReac Intermediate Nausea Verified 08/22/20 16:59 Antibiotics) General Stated Complaint: Abd Prob STEFFANIE: 3 Review of Systems <WILFRID Alvarado - Last Filed: 08/22/20 19:46> Constitutional Constitutional: Denies fatigue, Denies fever(s), Denies headache(s) and Denies weakness ENT Ears, Nose, Mouth, and Throat: Denies headache(s) and Denies neck pain Cardiovascular Cardiovascular: Denies chest pain and Denies dyspnea Respiratory Respiratory: Denies cough and Denies dyspnea Gastrointestinal Gastrointestinal: Reports abdominal pain, Denies constipation, Denies diarrhea, Denies nausea and Denies vomiting Genitourinary Genitourinary: Denies dysuria Musculoskeletal Musculoskeletal: Reports back pain, Denies arthralgias, Reports muscle cramps, Denies neck pain, Denies numbness and Denies tingling Integumentary/Breasts Skin/Breast: Denies erythema and Denies rash Neurologic Neurologic: Denies headache(s), Denies numbness, Denies tingling and Denies weakness Endocrine Endocrine: Denies fatigue Hematologic/Lymphatic Hematologic/Lymphatic: Denies easy bleeding and Denies easy bruising PFS <WILFRID Alvarado - Last Filed: 08/22/20 19:46> Social History Smoking/Tobacco Use Status: Current every day Tobacco Type: cigarettes Tobacco: How many years used: 15 Smoking risk assessment performed?: Yes Alcohol Intake: current Alcohol Intake frequency: holidays/special occasions only Drug use: Never Substance use type: does not use Do you feel safe at home: Yes Do you feel safe in your relationship?: Yes Exam <WILFRID Alvarado - Last Filed: 08/22/20 19:46> Const General: cooperative, healthy appearing, comfortable, no acute distress and anxious Orientation: alert, awake and oriented x3 HENMT Head: normal to inspection, normocephalic and atraumatic Face and sinus: normal facial exam Mouth: moist mucous membranes abnormal (Slightly dry) Eyes General: appearance normal, both eyes and all related structures Conjunctivae: conjunctivae normal Neck Neck: normal visual inspection, full ROM, trachea midline and supple Resp Effort & Inspection: normal respiratory effort and able to speak in complete sentences Auscultation: clear to auscultation bilaterally Cardio Rate: regular rate Rhythm: regular rhythm GI Palpation: soft, not firm, no guarding, no pulsatile masses and nontender Auscultation: normal bowel sounds Other: Patient with a nontender, easily reduced, umbilical hernia Back/Spine/Pelvis Back: No back tenderness Skin General skin exam: no rashes or lesions noted Neuro General: patient alert, patient awake, patient oriented x3, moves all extremities and no focal motor deficits Cognition: normal cognition Speech: speech normal Gait: normal gait Motor: muscle tone normal throughout Sensory Exam: no sensory deficits noted Extrem General: normal to inspection, full ROM, capillary refill normal, no pedal edema and no calf tenderness Psych Appearance: grossly normal Mental Status: mental status grossly normal Course <WILFRID Alvarado - Last Filed: 08/22/20 19:46> Vital Signs Vital signs: Vital Signs Temperature 35.9 C L 08/22/20 16:09 Pulse 110 H 08/22/20 16:09 Respiratory Rate 18 08/22/20 16:09 Blood Pressure 143/77 H 08/22/20 16:09 Pulse Oximetry 98 08/22/20 16:09 Temperature 35.9 C L 08/22/20 16:09 Temperature Source Skin 08/22/20 16:09 Pulse 110 H 08/22/20 16:09 Respiratory Rate 18 08/22/20 16:09 Respiratory Effort 08/22/20 16:12 Blood Pressure 143/77 H 08/22/20 16:09 Blood Pressure Position Standing 08/22/20 16:09 Pulse Oximetry 98 05/07/21 16:09 Oxygen Delivery Method Room Air 08/22/20 16:09 Oxygen Flow Rate 0 08/22/20 16:09 Pain Level 7 08/22/20 16:09
[2020-08-22] MEDS: diazePAM 10 MG/2 ML SYR 5 MG IVP (16:47)
[2020-08-22 16:55] LABS: Abs Immature Grans 0.19 10^3/uL (0.0-0.06); Absolute Eosinophil Count 0.06 10^3/uL (0.0-0.7); Absolute Lymphocyte Count 1.58 10^3/uL (1.2-3.4); Absolute Monocyte Count 1.23 10^3/uL (0.1-0.8); Basophils % 0.4; Eosinophils % 0.4; HGB 15.7 g/dL (13.5-17.5); Immature Grans % 1.2; Lymphocytes % 9.8; MCHC 34.1 % (32.0-36.0); MCV 93.9 fL (80-95); MPV 9.7 fL (8.0-11.0); Monocytes % 7.6; Neutrophils % 80.6; Nucleated RBC 0 %; Platelet Count 285 10^3/uL (130-400); RDW 12.6 % (11.8-14.1); RDW-SD 43.6 fL; WBC 16.13 10^3/uL (4.4-10.8)
[2020-08-22 16:58] LABS: Absolute Basophil Count 0.06 10^3/uL (0.0-0.2)
[2020-08-22 17:01] LABS: Lactate 2.1 mmol/L (0.6-1.4)
[2020-08-22 17:15] LABS: ALT 29 U/L (16-63); AST 16 U/L (15-37); Albumin 4.9 g/dL (3.4-5.0); Alkaline Phosphatase 72 U/L (46-116); Anion Gap 9.3 mmol/L (3-11); BUN 20 mg/dL (7-18); Bilirubin, Total 0.6 mg/dL (0.2-1.0); CO2 27.7 mmol/L (21.0-32.0); CREATININE 2.4 mg/dL (0.70-1.30); Chloride 103 mmol/L (98-107); Estimated GFR 27.39 (mL/min/1.73m2); Glucose 128 mg/dL (74-106); Lipase 111 U/L (73-393); Potassium 4.8 mmol/L (3.5-5.1); Sodium 140 mmol/L (136-145); Total Protein 8.7 g/dL (6.4-8.2)
--- NOTE | 2020-08-22 17:15 | DI.RAD_ITS ---
Exam(s) XR CHEST 2V PA LATERAL EXAM: XR CHEST 2V PA LATERAL CLINICAL HISTORY: pain/cramping, wbc 16 lactate 2.1. TECHNIQUE: 2D digital imaging was performed. COMPARISON: CR CHEST 2 VIEWS PA,LAT from 12/30/2009 FINDINGS: Heart size is normal. The mediastinum is not widened. Lungs are clear. No infiltrates nor pleural effusions. IMPRESSION: No acute pulmonary findings. DATA REPOSITORY: RADIATION DOSE DELIVERED:
[2020-08-22 17:20] LABS: Magnesium 1.9 mg/dL (1.8-2.4)
[2020-08-22] MEDS: Normal Saline 1,000 ML 1000 ML IV (17:34)
[2020-08-22 17:37] LABS: Troponin I < 0.05 ng/mL (<0.06)
[2020-08-22 17:45] LABS: Bilirubin Moderate (Negative); Blood Negative (Negative); Clarity Sl Cloudy (Clear); Glucose Negative (Negative); Ketones 15 mg/dL (Negative); Leukocyte Esterase Negative (Negative); Nitrite Negative (Negative); Specific Gravity >= 1.030 (1.005-1.025)
[2020-08-22] MEDS: Lactated Ringers 1,000 ML 1000 ML IV (17:46)
[2020-08-22 17:49] LABS: Creatine Kinase 331 U/L (39-308)
[2020-08-22 17:56] LABS: Bacteria Many HPF (Negative); C & S Indicated? Yes; Casts 10-20 Hyaline LPF (Negative); Crystals Moderate Amorphous HPF (Negative); Epithelial Cells Few HPF (Negative); Mucus Heavy (Negative); Other Cells Few Transitional (Negative); RBC Negative HPF (0-2); WBC >50 HPF (0-5)
--- NOTE | 2020-08-22 18:02 | DI.CT_ITS ---
Exam(s) CT ABDOMEN PELVIS WO EXAM: CT ABDOMEN PELVIS WO CLINICAL HISTORY: abd pain, wbc 16, lactate 2.1 creat 2.4. TECHNIQUE: Imaging Protocol: Axial computed tomography images with coronal and sagittal reformatted images were created and reviewed CONTRAST MATERIAL: Intravenous: none Oral: None COMPARISON: CT CT CHEST PE CTA from 03/09/2020 FINDINGS: VISUALIZED LUNG BASES: No nodules nor pleural effusions evident. ABDOMEN: There is no ascites. LIVER: There are no obvious focal hepatic lesions evident of this noninfused study. GALLBLADDER/BILIARY: No obvious gallbladder pathology. CBD is not dilated. PANCREAS: No evidence of pancreatic mass nor dilatation of the pancreatic duct. SPLEEN: Spleen is not enlarged. No obvious intrasplenic lesions. ADRENALS: There are no significant adrenal masses. KIDNEYS:No cysts evident. No solid renal masses. No calculi nor hydronephrosis. . ABDOMINAL AORTA: Abdominal aorta is not enlarged. LYMPH NODES: There is no retroperitoneal nor paraaortic adenopathy. ABDOMINAL WALL/GI: No evidence of significant anterior abdominal wall hernia. No bowel obstruction. PELVIS: LYMPH NODES: There is no intrapelvic nor inguinal adenopathy. GI: No evidence of appendicitis.No evidence of sigmoid diverticulitis. URINARY BLADDER: No calculi nor obvious masses evident REPRODUCTIVE: Unremarkable OSSEOUS: No significant osseous lesions. IMPRESSION: 1. 2. 3. RADIATION DOSE DELIVERED: 1,305.88mGy.cm Total DLP DATA REPOSITORY: All CT scans at this facility are submitted to the National Radiology Data Registry (NRDR) Dose Index Registry (DIR) with the [employer] ([employer]). RADIATION OPTIMIZATION: All CT scans at this facility use at least one of these dose optimization te chniques: automated exposure control; mA and/or kV adjustment per patient size (includes targeted exa ms where dose is matched to clinical indication); or iterative reconstruction.
--- NOTE | 2020-08-22 18:23 | DI.VRAD_ITS ---
PROCEDURE INFORMATION: Exam: XR Chest Exam date and time: 08/22/2020 6:03 PM Age: 65 years old Clinical indication: Chest pain, cramping; Additional info: WBC 16, lactate 2.1 TECHNIQUE: Imaging protocol: XR of the chest. Views: 2 views. COMPARISON: CT CHEST PE CTA 03/09/2020 2:21 PM FINDINGS: Lungs: No alveolar infiltrate. Pleural spaces: No pleural fluid collection. No pneumothorax. Heart/Mediastinum: Normal heart size. Bones/joints: Unremarkable for age. IMPRESSION: No active pulmonary disease. Dictated and Authenticated by: Cale Singleton MD. Ordering:KYLER Quevedo MD
--- NOTE | 2020-08-22 18:27 | DI.VRAD_ITS ---
PROCEDURE INFORMATION: Exam: CT Abdomen And Pelvis Without Contrast Exam date and time: 08/22/2020 5:42 PM Age: 65 years old Clinical indication: Abdominal pain, WBC 16, lactate 2.1 creat 2.4 TECHNIQUE: Imaging protocol: Computed tomography of the abdomen and pelvis without contrast. Radiation optimization: All CT scans at this facility use at least one of these dose optimization techniques: automated exposure control; mA and/or kV adjustment per patient size (includes targeted exams where dose is matched to clinical indication); or iterative reconstruction. COMPARISON: No relevant prior studies available. FINDINGS: Lungs: No acute infiltrate in either lung base. Posterior right lung base linear parenchymal scarring or subsegmental collapse / atelectasis. Liver: Normal. No mass. Gallbladder and bile ducts: Normal. No calcified stones. No ductal dilation. Pancreas: Normal. No ductal dilation. Spleen: Normal. No splenomegaly. Adrenal glands: Normal. No mass. Kidneys and ureters: Normal. No hydronephrosis. Stomach and bowel: No generalized ileus or bowel obstruction. Scattered colon diverticuli without evidence of diverticulitis. Appendix: Normal appendix. Intraperitoneal space: No free air. No significant fluid collection. Vasculature: Unremarkable. No abdominal aortic aneurysm. Lymph nodes: Unremarkable. No enlarged lymph nodes. Urinary bladder: Decompressed urinary bladder. Reproductive: Enlarged prostate gland measuring 5.3 cm transversely. Bones/joints: Mild spinal degenerative changes. Soft tissues: Fat-containing umbilical and left inguinal hernias. IMPRESSION: 1. No acute intra-abdominal or pelvic process. 2. Scattered colon diverticuli without evidence of diverticulitis. 3. Enlarged prostate gland measuring 5.3 cm transversely. Dictated and Authenticated by: Cale Singleton MD. Ordering:KYLER Quevedo MD
[2020-08-22 18:58] LABS: Lactate 1.3 mmol/L (0.6-1.4)
[2020-08-22 19:02] LABS: Abs Immature Grans 0.12 10^3/uL (0.0-0.06); Absolute Basophil Count 0.06 10^3/uL (0.0-0.2); Absolute Lymphocyte Count 0.99 10^3/uL (1.2-3.4); Absolute Monocyte Count 0.82 10^3/uL (0.1-0.8); Basophils % 0.4; Eosinophils % 0.1; HCT 41.5 % (40.0-50.0); Immature Grans % 0.8; Lymphocytes % 6.8; MCH 31.8 pg (27.0-33.0); MCHC 33.7 % (32.0-36.0); MCV 94.3 fL (80-95); MPV 9.7 fL (8.0-11.0); Monocytes % 5.6; Neutrophils % 86.3; Nucleated RBC 0 %; Platelet Count 234 10^3/uL (130-400); RDW 12.5 % (11.8-14.1); RDW-SD 43.5 fL; WBC 14.58 10^3/uL (4.4-10.8)
[2020-08-22 19:03] LABS: Absolute Eosinophil Count 0.01 10^3/uL (0.0-0.7); Absolute Neutrophil Count 12.58 10^3/uL (1.2-6.7)
[2020-08-22 19:13] LABS: ALT 26 U/L (16-63); AST 14 U/L (15-37); Albumin 3.9 g/dL (3.4-5.0); Alkaline Phosphatase 59 U/L (46-116); Anion Gap 6.5 mmol/L (3-11); BUN 19 mg/dL (7-18); Bilirubin, Total 0.5 mg/dL (0.2-1.0); CO2 28.5 mmol/L (21.0-32.0); CREATININE 2.1 mg/dL (0.70-1.30); Calcium 9.1 mg/dL (8.5-10.1); Chloride 106 mmol/L (98-107); Estimated GFR 31.96 (mL/min/1.73m2); Glucose 108 mg/dL (74-106); Potassium 4.8 mmol/L (3.5-5.1); Sodium 141 mmol/L (136-145); Total Protein 7.3 g/dL (6.4-8.2)
== END 2020-08-22 20:30 | disposition home or self-care (01) ==
PROVIDERS: Emergency Provider Physician Assistant; PCP Family Medicine
DX: E86.0 Dehydration (principal); M62.831 Muscle spasm of calf; D72.829 Elevated white blood cell count, unspecified; N28.9 Disorder of kidney and ureter, unspecified
CPT/HCPCS: 36415; 80053; 82550; 83690; 93005; 99285; 71046; 74176; 81003; 81015; 83605; 83735; 84484; 85025; 87086; 93010; 99284; J3360